=== PATIENT | male | born 1995 ===

== ENCOUNTER 2024-07-07 14:14 | Emergency (ER) | payer MEDICAID ==
[~2024-07-07] VITALS: Ht 185.4 cm; Wt 63.0 kg
[2024-07-07 14:49] VITALS: BP 100/63; PULSE 80; RESP 16; TEMP 98.5; O2SAT 99
[2024-07-07] MEDS ORDERED: PRED20TA PO (15:46)
== END 2024-07-07 16:01 | disposition home or self-care (01) ==
LOC: ER 14:15
DX: M25.512 Pain in left shoulder (principal); Z88.8 Allergy status to other drugs, medicaments and biological substances
CPT/HCPCS: 73030; 99283